=== PATIENT | female | born 1940 | race Caucasian/White ===

== ENCOUNTER 2016-06-20 16:52 | Emergency (ER) | payer MEDICARE, MEDICAID ==
[~2016-06-20] VITALS: Ht 152.4 cm; Wt 57.3 kg
[~2016-06-20 16:52] MED LIST: ASCO500S2 PO; ATOR40TA68 PO; CHOL50009 PO; CIPR500T4 PO; HYDR-3498 PO; LORA10TA3 PO; LOSA50TA6 PO; MTF1000T PO; OMEP40CA6 PO; VITA400C15 PO
[2016-06-20 16:53] VITALS: Ht 152.4 cm; Wt 57.3 kg
[2016-06-20] MEDS ORDERED: ASPIRIN 325 MG TAB PO STA (17:43)
--- NOTE | 2016-06-20 17:50 | ERD ---
ER Documentation Chief Complaint Date/Time DATE: 06/20/16 TIME: 17:45 Chief Complaint cp onset 1 hr ago HPI 75-year-old female history of hypertension, hyperlipidemia, remote breast CA and previous diabetes but no longer on medication ambulatory to the ED complaining of a 2-3 day history of unprovoked, burning, nonradiating, mild left upper chest and arm pain. Denies any accompanying shortness of breath, nausea, vomiting or diaphoresis. Complains of generalized anxiety but denies depression. No other relieving or exacerbating factors. No URI symptoms or cough. No skin rash. Denies leg pain or swelling. No abdominal pain, nausea, vomiting, diarrhea or constipation. No headache or neck pain. No dysuria, pallor, hematuria or flank pain. No fevers or chills. ROS All systems reviewed and are negative except as per history of present illness. Medications Home Meds Active Scripts Hydrocodone Bit-Acetaminophen* (Ewing*) 5-325 Mg Tab, 1 TAB PO Q4H Y for PAIN, # 20 TAB Prov:FELICIANO CHARLES MD 02/01/15 Reported Medications Ciprofloxacin Hcl* (Ciprofloxacin Hcl*) 500 Mg Tablet, 500 MG PO BID, TAB 02/01/15 Ascorbic Acid* (Ascorbic Acid*) 500 Mg/5 Ml Syrup, 1000 MG PO DAILY, ML 05/15/14 Cholecalciferol* (Vitamin D*) 5,000 Unit Tablet, 5000 UNIT PO DAILY, TAB 05/15/14 Vitamin E* (Vitamin E*) 400 Unit Capsule, 400 UNIT PO BID, CAP 05/15/14 Metformin* (Glucophage*) 1,000 Mg Tablet, 1000 MG PO BID, TAB 05/15/14 Omeprazole* (Omeprazole*) 40 Mg Capsule.dr, 40 MG PO DAILY, CAP 05/15/14 Losartan Potassium* (Losartan Potassium*) 50 Mg Tablet, 50 MG PO BID, TAB 05/15/14 Loratadine* (Loratadine*) 10 Mg Tablet, 10 MG PO DAILY, TAB 05/15/14 Atorvastatin* (Atorvastatin*) 40 Mg Tablet, 40 MG PO HS, TAB 05/15/14 Allergies Allergies: Coded Allergies: No Known Allergy (Verified , 02/01/15) PMhx/Soc DOCUMENTS REVIEWED: ED nurse, prior ED, prior records PROCEDURES: [] ED COURSE: [] REEXAMINATION/REEVALUATION: Time:[] MEDICAL DECISION MAKIN-year-old female history of hypertension, hyperlipidemia, remote breast CA and previous diabetes but no longer on medication presents the ED complaining of a 2-3 day history of burning type left upper chest and arm pain. Counseled [patient and family] regarding diagnosis, diagnostic results and plan for admission. CALLS/CONSULTS: Time[], [], Recommends []. PATIENT CARE TRANSITIONED: Time: [], []. History of Surgery: Yes (right hip and right mastectomy) Hx Alcohol Use: Yes (drinks 6 beers on weekends.) Hx Substance Use: No Hx Tobacco Use: No FmHx No diabetes or coronary artery disease. Physical Exam Vitals Vital Signs Date Time Temp Pulse Resp B/P Pulse Ox O2 Delivery O2 Flow Rate FiO2 06/20/16 20:46 71 206/94 95 Room Air 06/20/16 18:48 81 18 185/81 97 Room Air 06/20/16 18:20 77 18 190/85 99 Room Air 06/20/16 16:53 98.1 73 20 183/76 99 Physical Exam Const: Alert, anxious but in no acute distress. Head: Atraumatic Eyes: Normal Conjunctiva ENT: Normal External Ears, Nose and Mouth. Neck: Full range of motion..~ No meningismus. Resp: Clear to auscultation bilaterally Cardio: Regular rate and rhythm, no murmurs. No chest wall tenderness Abd: Soft, non tender, non distended. Normal bowel sounds Skin: No petechiae or rashes Back: No midline or flank tenderness Ext: No cyanosis, or edema Neur: Awake and alert Psych: Anxious but not depressed. Result Diagram: 06/20/16 1716 06/20/16 1716 Results 24 hrs Laboratory Tests Test 06/20/16 17:16 White Blood Count 5.410^3/ul Red Blood Count 3.8410^6/ul Hemoglobin 12.1g/dl Hematocrit 35.8% Mean Corpuscular Volume 93.2fl Mean Corpuscular Hemoglobin 31.5pg Mean Corpuscular Hemoglobin Concent 33.8g/dl Red Cell Distribution Width 13.0% Platelet Count 20484^3/UL Mean Platelet Volume 10.0fl Neutrophils % 65.9% Lymphocytes % 22.9% Monocytes % 8.0% Eosinophils % 2.6% Basophils % 0.4% Nucleated Red Blood Cells % 0.0/100WBC Neutrophils # 3.610^3/ul Lymphocytes # 1.210^3/ul Monocytes # 0.410^3/ul Eosinophils # 0.110^3/ul Basophils # 0.010^3/ul Nucleated Red Blood Cells # 0.010^3/ul Prothrombin Time 12.5Sec Prothrombin Time Ratio 1.0 INR International Normalized Ratio 0.93 Activated Partial Thromboplast Time 24.1Sec D-Dimer 461.05ng/ml D-Dimer Comment Sodium Level 143mmol/L Potassium Level 4.1mmol/L Chloride Level 104mmol/L Carbon Dioxide Level 28mmol/L Anion Gap 15 Blood Urea Nitrogen 20mg/dl Creatinine 1.01mg/dl Glucose Level 113mg/dl Calcium Level 10.1mg/dl Total Bilirubin 0.4mg/dl Direct Bilirubin 0.00mg/dl Indirect Bilirubin 0.4mg/dl Aspartate Amino Transf (AST/SGOT) 27IU/L Alanine Aminotransferase (ALT/SGPT) 22IU/L Alkaline Phosphatase 76IU/L Troponin I < 0.012ng/ml Total Protein 7.0g/dl Albumin 4.1g/dl Globulin 2.90g/dl Albumin/Globulin Ratio 1.41 Current Medications Medications (Trade) Dose Ordered Sig/Bita Route PRN Reason Start Time Stop Time Status Last Admin Dose Admin Aspirin (Aspirin) 325 mg ONCE STAT PO 06/20/16 17:43 06/20/16 17:45 DC 06/20/16 18:17 Nitroglycerin (Nitroglycerin (Sl Tab) 0.4 Mg) 1 tab Q5M UP TO 3 DOSES PRN SL CHEST PAIN 06/20/16 18:00 06/20/16 18:17 Lorazepam (Ativan) 0.5 mg ONCE ONCE PO 06/20/16 19:00 06/20/16 19:01 DC 06/20/16 19:01 RHYTHM STRIP INTERPRETATION: Time: []. Indication: []. EKG: Time: 17:01. Sinus rhythm. Ventricular rate 73, normal MD and QRS intervals. No acute ST segment elevation or depression. No axis deviation or ectopy. EP Impression: Normal EKG IMAGING: PROCEDURE: Chest x-ray. CLINICAL INDICATION: Chest pain. TECHNIQUE: PA view of the chest. COMPARISON: 05/15/2014. FINDINGS: No pulmonary edema or conolidation is identified. The cardiac silhouette is magnified. No pleural effusion is seen. There is no pneumothorax. Nodular opacities projecting over the left thoracoabdominal region are probably external to the patient. IMPRESSION: 1. No evidence of acute cardiopulmonary disease. RPTAT: HTAR .Jani Barrios MD, MD Date Time Electronically viewed and signed by .Jani Barrios MD, MD on 06/20/2016 20:44 .R/ Procedures/MDM DOCUMENTS REVIEWED: ED nurse, prior ED, prior records REEXAMINATION/REEVALUATION: Time:20:30. Symptoms completely resolved after Ativan MEDICAL DECISION MAKIN-year-old female history of hypertension, hyperlipidemia, remote breast CA and previous diabetes but no longer on medication ambulatory to the ED complaining of a 2-3 day history of unprovoked, burning, nonradiating, mild left upper chest and arm pain. No radiographic evidence of pneumonia or pneumothorax. Counseled [patient and family] regarding diagnosis, diagnostic results and plan for admission. CALLS/CONSULTS: Time[], [], Recommends []. PATIENT CARE TRANSITIONED: Time: []Dr. []. Departure Diagnosis: Primary Impression: Chest pain of uncertain etiology Additional Impressions: Hypertension Hypertension type: essential hypertension Qualified Code: I10 - Essential hypertension Anxiety Condition: Stable Patient Instructions: Anxiety Reaction, Chest Pain, Uncertain Cause, High Blood Pressure (Hypertension) FELICIANO CHARLES MD Jun 20, 2016 17:49
[2016-06-20 17:51] LABS: ADD SCAN DIFF NO
[2016-06-20 17:53] LABS: BASOPHILS % 0.4 % (0.0-2.0); EOSINOPHILS # 0.1 10^3/ul (0.0-0.5); EOSINOPHILS % 2.6 % (0.0-7.0); HEMATOCRIT 35.8 % (37.0-47.0); HEMOGLOBIN 12.1 g/dl (12.0-16.0); LYMPHOCYTES # 1.2 10^3/ul (0.8-2.9); LYMPHOCYTES % 22.9 % (15.0-51.0); MEAN CORPUSCULAR HEMOGLOBIN 31.5 pg (29.0-33.0); MEAN CORPUSCULAR HGB CONC 33.8 g/dl (32.0-37.0); MEAN CORPUSCULAR VOLUME 93.2 fl (82.0-101.0); MONOCYTE # 0.4 10^3/ul (0.3-0.9); NEUTROPHIL # 3.6 10^3/ul (1.6-7.5); NEUTROPHILS % 65.9 % (39.0-77.0); PLATELET COUNT 230 10^3/UL (140-415); RED BLOOD COUNT 3.84 10^6/ul (4.20-5.40); WHITE BLOOD COUNT 5.4 10^3/ul (4.8-10.8)
[2016-06-20 17:56] LABS: ALBUMIN 4.1 g/dl (3.3-4.9); CHLORIDE 104 mmol/L (97-110); SODIUM 143 mmol/L (135-144)
[2016-06-20 17:57] LABS: POTASSIUM 4.1 mmol/L (3.5-5.1)
[2016-06-20 17:58] LABS: INR 0.93; PROTIME 12.5 Sec (12.2-14.2)
[2016-06-20 17:59] LABS: ALANINE AMINOTRANSFERASE 22 IU/L (13-69); ALBUMIN/GLOBULIN RATIO 1.41; ALKALINE PHOSPHATASE 76 IU/L (42-121); ANION GAP 15 (8-16); ASPARTATE AMINO TRANSFERASE 27 IU/L (15-46); BILIRUBIN,INDIRECT 0.4 mg/dl (0-1.1); BILIRUBIN,TOTAL 0.4 mg/dl (0.2-1.3); BLOOD UREA NITROGEN 20 mg/dl (7-20); CALCIUM 10.1 mg/dl (8.4-10.2); CARBON DIOXIDE 28 mmol/L (21-31); CREATININE 1.01 mg/dl (0.44-1.00); GLUCOSE 113 mg/dl (70-220); PARTIAL THROMBOPLASTIN TIME 24.1 Sec (25.0-35.0)
[2016-06-20] MEDS ORDERED: NITROGLYCERIN (SL) 0.4 MG TAB SL PRN (18:00)
[2016-06-20 18:02] LABS: D-DIMER 461.05 ng/ml (<460)
[2016-06-20 18:30] LABS: TROPONIN-I < 0.012 ng/ml (0.00-0.12)
[2016-06-20 18:48] VITALS: RESP 18
[2016-06-20] MEDS ORDERED: LORAZEPAM 0.5 MG TAB PO ONE (19:00)
--- NOTE | 2016-06-20 20:44 | RADRPT ---
PROCEDURE: Chest x-ray. CLINICAL INDICATION: Chest pain. TECHNIQUE: PA view of the chest. COMPARISON: 05/15/2014. FINDINGS: No pulmonary edema or conolidation is identified. The cardiac silhouette is magnified. No pleural effusion is seen. There is no pneumothorax. Nodular opacities projecting over the left thoracoabdom inal region are probably external to the patient. IMPRESSION: 1. No evidence of acute cardiopulmonary disease. RPTAT: HTAR .Jani Barrios MD, MD Date Time Electronically viewed and signed by .Jani Barrios MD, MD on 06/20/2016 20:44 .R/
[2016-06-20 20:46] VITALS: BP 206/94; PULSE 71
[2016-06-20] MEDS ORDERED: LORA-441 PO (21:02)
== END 2016-06-20 21:08 | disposition home or self-care (01) ==
LOC: E/R 16:52
DX: R07.9 Chest pain, unspecified (principal); I10 Essential (primary) hypertension; F41.9 Anxiety disorder, unspecified; E11.9 Type 2 diabetes mellitus without complications; Z79.84 Long term (current) use of oral hypoglycemic drugs; Z85.3 Personal history of malignant neoplasm of breast; Z87.891 Personal history of nicotine dependence
CPT/HCPCS: 36415; 71010; 80053; 84484; 85025; 85378; 85610; 85730; 93005

== ENCOUNTER 2017-07-20 11:18 | Emergency (ER) | END 2017-07-20 16:09 | disposition home or self-care (01) ==